=== PATIENT | female | born 1965 | race Caucasian/White ===

== ENCOUNTER 2018-09-12 00:11 | Emergency (ER) | payer MEDICAID ==
[~2018-09-12] VITALS: Ht 152.4 cm; Wt 60.0 kg
[2018-09-12] MEDS ORDERED: SEROQUEL 50 MG50 MG PO (00:21)
[2018-09-12] MEDS ORDERED: BELSOMRA10 MG PO (00:22)
[2018-09-12 00:35] LABS: ABSOLUTE BASOPHILS 0.1 thou/uL (0.0-0.2); ABSOLUTE EOSINOPHILS 0.1 thou/uL (0.0-0.7); ABSOLUTE LYMPHOCYTES 3.2 thou/uL (0.8-5.3); ABSOLUTE MONOCYTES 0.3 thou/uL (0.0-1.2); ABSOLUTE NEUTROPHILS 3.9 thou/uL (1.6-8.1); BASOPHILS 0.9 %; EOSINOPHILS 0.8 %; HEMATOCRIT 39.8 % (37.0-47.0); HEMOGLOBIN 13.4 gm/dL (12.0-15.0); LYMPHOCYTES 42.3 %; MCH 30.5 pg (26.0-34.0); MCHC 33.7 g/dL (28.0-37.0); MCV 90.4 fL (80.0-100.0); MONOCYTES 4.5 %; MPV 7.6 fl. (7.2-11.1); NUCLEATED RBCS 0 /100WBC; PLATELET COUNT* 208 thou/uL (150-400); POLYS 51.5 %; RDW-CV 14.9 % (10.5-14.5); WBC 7.6 thou/uL (4.0-11.0)
[2018-09-12 00:44] LABS: ANION GAP 10 mmol/L (7-16); BUN 13 mg/dL (7-18); CALCIUM 8.5 mg/dL (8.5-10.1); CHLORIDE 106 mmol/L (98-107); CO2 26 mmol/L (21-32); GLUCOSE 116 mg/dL (70-99); POTASSIUM 3.4 mmol/L (3.5-5.1); SODIUM 142 mmol/L (136-145)
[2018-09-12 00:48] LABS: PROTIME 10.3 Seconds (9.20-11.50)
[2018-09-12 00:55] LABS: ALBUMIN 3.5 g/dL (3.4-5.0); ALKALINE PHOSPHATASE 78 U/L (46-116); LIPASE 54 U/L (73-393); NT-PRO BRAIN NAT PEPTIDE 9 pg/mL (<300); SGOT 13 U/L (15-37); SGPT 18 U/L (30-65); TOTAL BILIRUBIN 0.2 mg/dL (<0.1-1.0); TOTAL PROTEIN 7.2 g/dL (6.4-8.2); TROPONIN-I LEVEL <0.06 ng/mL (<0.06)
[2018-09-12 01:34] LABS: URINE BILIRUBIN NEGATIVE (Negative); URINE BLOOD 1+ (Negative); URINE CLARITY CLEAR; URINE COLOR YELLOW; URINE GLUCOSE-RANDOM NEGATIVE (Negative); URINE KETONES NEGATIVE (Negative); URINE LEUKOCYTES-REFLEX NEGATIVE (Negative); URINE NITRITE-REFLEX NEGATIVE (Negative); URINE PROTEIN TRACE (Negative); URINE SPECIFIC GRAVITY >= 1.030 (1.005-1.030); URINE UROBILINOGEN 0.2 E.U./dl (0.2-1.0)
[2018-09-12 01:39] LABS: AMP/METHAMP Negative (Negative); BARBITURATES Negative (Negative); BENZODIAZEPINES Negative (Negative); COCAINE Negative (Negative); METHADONE Negative (Negative); OPIATES Negative (Negative); PCP Negative (Negative); THC POSITIVE (Negative)
[2018-09-12 01:51] LABS: HYALINE CASTS 0-3 Few /LPF (None Seen); MUCUS >6 Heavy strn/LPF (None Seen); SQUAMOUS 0-3 Few /LPF (0-3); URINE RBC 3-10 Few /HPF (0-2); URINE WBC-REFLEX None Seen /HPF (0-5)
[2018-09-12 01:52] LABS: CRYSTALS None Seen /LPF (None Seen)
[2018-09-12] MEDS ORDERED: CARAFATE 1 GM TA1 GM PO (04:36)
[2018-09-12] MEDS ORDERED: PRILOSEC OTC20 MG PO (04:36)
[2018-09-12 05:21] VITALS: BP 125/76
--- NOTE | 2018-09-12 14:47 | EKG ---
[place] [address] ELECTROCARDIOGRAM REPORT Name: ANDREEALALA L Room: [facility]#: [id number] Admission: 09/12/18 Attend Phys: Discharge: 09/12/18 Date of : 67 Report #: [id number] THIS REPORT FOR: //name// [facility] ED Test Date: 2018-09-12 Test Time: 00:15:52 Pat Name: LALA DORAN Department: Room: Gender: F Assistant Teaching Professor: Lisset RAMÍREZ : 1965 Requested By: Mily Chacon Order Number: [id number] MD: Parvez Workman Measurements Intervals [place] Rate: 93 P: 68 NE: 155 QRS: 40 QRSD: 99 T: 53 QT: 409 QTc: 509 Interpretive Statements Sinus rhythm Biatrial enlargement Borderline T abnormalities, anterior leads Borderline prolonged QT interval No previous ECG available for comparison [facility] [place] Electronically Signed On 09-12-2018 14:47:44 CDT by Parvez Workman [email or web address] <ELECTRONICALLY SIGNED> By: Parvez Workman MD, [facility] 09/12/18 1447 0015 0015 Parvez Workman MD, FACC /EPI
== END 2018-09-12 05:21 | disposition home or self-care (01) ==
LOC: M.ERS 00:11
PROVIDERS: Emergency Medicine
DX: R10.13 Epigastric pain (principal); R10.31 Right lower quadrant pain; Z91.041 Radiographic dye allergy status; Z88.6 Allergy status to analgesic agent; Z79.899 Other long term (current) drug therapy

== ENCOUNTER 2018-12-20 21:53 | Emergency (ER) | payer MEDICAID ==
[~2018-12-20] VITALS: Ht 152.4 cm; Wt 53.5 kg
[~2018-12-20 21:53] MED LIST: BELSOMRA10 MG PO; CARAFATE 1 GM TA1 GM PO; PRILOSEC OTC20 MG PO; SEROQUEL 50 MG50 MG PO
[2018-12-20] MEDS ORDERED: ACETAMINOPHEN-1 EAC1 PO (23:01)
[2018-12-20 23:50] VITALS: BP 96/51
== END 2018-12-20 23:51 | disposition home or self-care (01) ==
LOC: M.ERS 21:53
DX: S92.522A Displaced fracture of middle phalanx of left lesser toe(s), initial encounter for closed fracture (principal); Z90.710 Acquired absence of both cervix and uterus; Z91.041 Radiographic dye allergy status; Z88.6 Allergy status to analgesic agent; X58.XXXA Exposure to other specified factors, initial encounter; Y93.89 Activity, other specified; Y92.89 Other specified places as the place of occurrence of the external cause; Y99.8 Other external cause status